=== PATIENT | male | born 1945 | race Caucasian/White ===

== ENCOUNTER 2019-03-16 11:52 | Inpatient (IN) ==
[2019-03-16 11:59] VITALS: BMI 25.0
--- NOTE | 2019-03-16 13:33 | DR.ABDMALE ---
HPI Time seen Time Seen by Provider: 03/16/19 13:19 PCP Primary Care Physician: DR COOK Complaint Chief Complaint Doctors Comments: A 74 y/o male with epigastric pain of about 3 weeks. He describes this as sharp in nature and very intense. It is frequent and intermittent and worsens with meals. other c/o is of constipation. Last BM was 10 days ago. He has tried OTC agents with no success. Chief Complaint:: PT C/O 3 WEEK HISTORY OF CONSTANT SEVERE EPIGASTRIC PAIN THAT INTERMITTENTLY RADIATES STRAIGHT THROUGHT TO BACK. PT ALSO C/O NAUSEA BUT DENIES VOMITING. STATES HE HASN'T HAD BM IN 10 DAYS. SAW PCP AND WAS REFERED TO ER TODAY. Mode of arrival Mode of Arrival: Wheelchair Timing Onset of Chief Complaint: 03/16/19 Came on: Gradually Duration How lon Duration: Weeks Location Location: RUQ and Epigastric Severity Severity: Severe Quality Quality: Sharp Context Onset: Gradually History of: None Modifying factors Worsening Factors: Food Improving Factors: Nothing Associated signs and symptoms Associated Signs and Symptoms: None PMH PMH Past Medical History: No Past Medical History: Dyslipidemia, GERD, Gout and Hypertension Past Surgical History: Yes Surgical History: Tonsillectomy Family History History of Family Medical Conditions: No Family Medical History: Hypertension Social History Does patient currently use any type of tobacco product: No Have you used tobacco products in the last 12 months: No Type of Tobacco Use: None Does any household member use tobacco: No Alcohol Use: None Do you use any recreational Drugs:: No Lives With: Spouse Lives Where: Home infectious screening In the last 2 months have you had wt loss of >10#?: NO Have you had fever, night sweats or hemotysis?: No Have you traveled outside the country in the last 6 months?: No Isolation: Standard ROS Review of Systems Constitutional: No Symptoms Reported Eyes: No Symptoms Reported ENTM: No Symptoms Reported Respiratoy: No Symptoms Reported Cardiovascular: No Symptoms Reported Gastrointestinal/Abdominal: Abdominal Pain and Other (constipation) Genitourinary: No Symptoms Reported Neurological: No Symptoms Reported Musculoskeletal: No Symptoms Reported Integumentary: No Symptoms Reported Hematologic/Lymphatic: No Symptoms Reported Endocrine: No Symptoms Reported Psychiatric: No Symptoms Reported PE Vital Signs Vital Signs: Temp Pulse Resp BP BP Pulse Ox 03/16/19 11:53 97.4 F L 97 H 20 124/60 98 03/13/19 10:34 117/62 02/02/16 12:00 127/83 General Limitations: No Limitations General Appearance: Alert Head Head Exam: Normal Inspection, Atraumatic and Normocephalic Eyes Eye exam: Normal Appearance and EOMI ENT ENT Exam: Normal Exam, Normal Oropharynx and Mucous Membranes Moist Neck Neck Exam: Normal Inspection, Full ROM and Trachea Midline Chest Chest Inspection: Normal Inspection and Symmetric Chest Wall Rise Respiratory Respiratory Exam: Normal Lung Sounds Bilat Cardiovascular Cardiovascular Exam: Regular Rate, Normal Rhythm, Normal Heart Sounds, +S1 and +S2 Abdominal Exam Abdominal Exam: Normal Bowel Sounds, Soft and Distention; negative Normal Inspection, Tenderness, Guarding, Rebound, Rigidity, Dimnished Bowel Sounds, Hyperactive Bowel Sounds, Hypoactive Bowel Sounds, Organomegaly, Trauma, Incision, Ascites, Mass, Bruit, Pulsatile Mass and Hernia Rectal Rectal Exam: Deferred Back Back Exam: Normal Inspection and Full ROM Extremeties Extremities Exam: Normal Inspection and Full ROM Exam: Male: Deferred Neurologic Neurological Exam: Alert and Oriented X3 Psychiatric Psychiatric Exam: Normal Affect and Normal Mood Skin Skin Exam: Dry and Normal Color COURSE Reevaluation 1st: Unchanged Education/Counseling Education/Counseling: Patient, Family, Education and Counseling Educated On: Treatment, Diagnosis, Prognosis and Needs for Follow Up ROR Labs Reviewed Laboratory Results Reviewed?: Yes Result Diagrams: 03/16/19 13:37 03/16/19 13:37 Laboratory: WBC 14.1 X10^3/uL (3.6-10.0) H 03/16/19 13:37 RBC 4.27 X10^6/uL (4.7-6.0) L 03/16/19 13:37 Hgb 13.3 g/dL (13.5-18.0) L 03/16/19 13:37 Hct 38.4 % (42.0-54.0) L 03/16/19 13:37 MCV 90.0 fL (80.0-100.0) 03/16/19 13:37 MCH 31.1 pg (27.0-34.0) 03/16/19 13:37 MCHC 34.6 g/dL (33.0-35.0) 03/16/19 13:37 RDW 13.9 % (11.6-16.5) 03/16/19 13:37 Plt Count 251 X10^3/uL (150.0-450.0) 03/16/19 13:37 MPV 6.4 fL (7.4-11.0) L 03/16/19 13:37 Neut % (Auto) 82.5 % (42.0-75.0) H 03/16/19 13:37 Lymph % (Auto) 8.0 % (21.0-51.0) L 03/16/19 13:37 [place] % (Auto) 9.2 % (0.0-13.0) 03/16/19 13:37 Eos % (Auto) 0.0 % (0.9-2.9) L 03/16/19 13:37 Baso % (Auto) 0.3 % (0.2-1.0) 03/16/19 13:37 Neut # (Auto) 11.6 x10^3/uL (2.2-4.8) H 03/16/19 13:37 Lymph # (Auto) 1.1 X10^3/uL (1.3-2.9) L 03/16/19 13:37 [place] # (Auto) 1.3 x10^3/uL (0.3-0.8) H 03/16/19 13:37 Eos # (Auto) 0.0 x10^3/uL (0.0-0.2) 03/16/19 13:37 Baso # (Auto) 0.0 X10^3/uL (0.0-0.1) 03/16/19 13:37 Absolute Nucleated RBC 0.0 /100WBC 03/16/19 13:37 Sodium 130 mmol/L (136-145) L 03/16/19 13:37 Corrected Sodium 131 mmol/L (136-145) L 03/16/19 13:37 Potassium 4.8 mmol/L (3.5-5.1) 03/16/19 13:37 Chloride 91 mmol/L (98-107) L 03/16/19 13:37 Carbon Dioxide 28.1 mmol/L (21-32) 03/16/19 13:37 BUN 53 mg/dL (7-18) H 03/16/19 13:37 Creatinine 2.15 mg/dL (0.70-1.30) H 03/16/19 13:37 Est GFR (MDRD) Af Amer 39 (>60) L 03/16/19 13:37 Est GFR (MDRD) Non-Af 32 (>60) L 03/16/19 13:37 Glucose 154 mg/dL (65-99) H 03/16/19 13:37 Calcium 10.1 mg/dL (8.5-10.1) 03/16/19 13:37 Corrected Calcium 10.9 mg/dL (8.5-10.1) H 03/16/19 13:37 Total Bilirubin 0.90 mg/dL (0.2-1.0) 03/16/19 13:37 AST 87 Units/L (15-37) H 03/16/19 13:37 ALT 99 Units/L (12-78) H 03/16/19 13:37 Alkaline Phosphatase 339 Units/L (46-116) H 03/16/19 13:37 Total Protein 7.9 g/dL (6.4-8.2) 03/16/19 13:37 Albumin 3.0 g/dL (3.4-5.0) L 03/16/19 13:37 Globulin 4.9 g/dL (2.5-4.5) H 03/16/19 13:37 Albumin/Globulin Ratio 0.6 Ratio (1.1-2.1) L 03/16/19 13:37 Amylase 25 Units/L (25-115) 03/16/19 13:37 Lipase 141 Units/L (73-393) 03/16/19 13:37 Other Results Comments: Abd. U/S report: no evidence for cholelithiasis or cholecystitis. 2 well marginated hypoechoic but not clearly cystic hepatic lesion measuring 2.5 x 1.6cm and 1.9 x 1.9 cm. Opioid Opioid Risk Tool Age (Britton box if 16-45): No History of Preadolescent Sexual Abuse: No Total: 0 Total Score Risk Category: Low Risk Copyright: Donal CAMERON predicting aberrant behaviors Diagnosis Discharge Problem: Elevated LFTs, Dehydration, Hepatic lesion, Hyponatremia Acute renal failure Qualifiers: Acute renal failure type: unspecified Qualified Code(s): N17.9 - Acute kidney failure, unspecified Instructions Forms: Excuse From Work
[2019-03-16 13:45] LABS: BASOPHILS % (AUTO) 0.3 % (0.2-1.0); HEMATOCRIT 38.4 % (42.0-54.0); HEMOGLOBIN 13.3 g/dL (13.5-18.0); LYMPHOCYTES # (AUTO) 1.1 X10^3/uL (1.3-2.9); MEAN CORPUSCULAR HEMOGLOBIN 31.1 pg (27.0-34.0); MEAN CORPUSCULAR HGB CONC 34.6 g/dL (33.0-35.0); MEAN PLATELET VOLUME 6.4 fL (7.4-11.0); MONOCYTES # (AUTO) 1.3 x10^3/uL (0.3-0.8); MONOCYTES % (AUTO) 9.2 % (0.0-13.0); NEUTROPHILS # (AUTO) 11.6 x10^3/uL (2.2-4.8); NEUTROPHILS % (AUTO) 82.5 % (42.0-75.0); PLATELET COUNT 251 X10^3/uL (150.0-450.0); RED BLOOD COUNT 4.27 X10^6/uL (4.7-6.0); RED CELL DISTRIBUTION WIDTH 13.9 % (11.6-16.5); WHITE BLOOD COUNT 14.1 X10^3/uL (3.6-10.0)
[2019-03-16 13:59] LABS: CALCIUM 10.1 mg/dL (8.5-10.1); CARBON DIOXIDE 28.1 mmol/L (21-32); COR CA(FOR HYPOALB) 10.9 mg/dL (8.5-10.1); CREATININE 2.15 mg/dL (0.70-1.30); TOTAL PROTEIN 7.9 g/dL (6.4-8.2)
--- NOTE | 2019-03-16 14:29 | US ---
HISTORY: Epigastric pain, right upper quadrant pain Study: Right upper quadrant ultrasound Comparison: None Technique: Multiple grayscale sonographic images were obtained. Findings: The liver is normal in size and configuration. There are 2 well-marginated sonolucent but not cystic lesions within the liver 1 measures 2.5 x 1.6 cm and the other 1.9 x 1.9 cm. The should be evaluated with hepatic protocol CT with and without contrast. The pancreas was not well demonstrated. The right kidney measured 9.9 x 5.5 x 5.3 cm and demonstrated no solid masses, hydronephrosis, stones, or perinephric fluid collections. No gallstones are present within the gallbladder. Gallbladder wall thickness was normal. The common duct measured 1.4 mm. IMPRESSION: No evidence for cholelithiasis or cholecystitis 2 well-marginated hypoechoic but not clearly cystic hepatic lesion measuring 2.5 x 1.6 cm and 1.9 x 1.9 cm. The should be further evaluated with hepatic protocol CT with and without contrast Reported By:
[2019-03-16] MEDS ORDERED: NS 1000 ML 1,000 ML IV ONE ×2 (15:12→16:00)
[2019-03-16] MEDS ORDERED: NS 1000 ML 1,000 ML ONE (15:15)
[2019-03-16] MEDS ORDERED: CHRONULAC ONE (15:16)
[2019-03-16] MEDS: CHRONULAC PO ONE (15:19)
[2019-03-16] MEDS ORDERED: NS 1000 ML IV NR (17:00)
[2019-03-16] MEDS: NS 1000 ML 1,000 ML IV SCH (18:05)
[2019-03-16] MEDS: ULTRAM PO PRN (21:33)
--- NOTE | 2019-03-16 22:14 | CT ---
CT abdomen and pelvis without contrast Indication: Abdominal pain Comparison: 12/29/2014 Technique: Multiple axial images of the abdomen and pelvis were obtained from the lung bases to the pubic symphysis without the administration of IV contrast. Coronal and sagittal reformatted images were also provided. Dose reduction techniques including automated exposure control (AEC) and adjustment of mA and kV were utilized. Findings: Overall sensitivity in detection of solid organ injury, mass or inflammatory change along with vascular injury or mesenteric hematoma is severely limited given lack of IV contrast administration. The lung bases are clear. No focal hepatic lesion is identified given limitations of a noncontrast examination. The gallbladder, bile ducts, spleen, pancreas and adrenal glands are normal. Neither kidney demonstrates evidence of nephrolithiasis, hydronephrosis or mass. Upper GI tract demonstrates no evidence of mass or obstruction. Urinary bladder is unremarkable. Prostate gland is enlarged with central dystrophic calcification. Moderate-size right and very small left-sided fat containing paraumbilical hernias. The rectum is normal. Distal colonic diverticulosis without evidence of acute diverticulitis. The appendix is normal. Abdominal aorta is normal in caliber with moderate calcified atherosclerotic disease. Small fat containing paraumbilical hernia. Round lytic lesions within the T10, T11, T12, L2, L3 and L5 vertebral bodies. Lytic lesions are noted within the right iliac wing. IMPRESSION: 1.Multiple new lytic lesions within the thoracic, lumbar spine and sacrum are consistent with osseous metastatic disease. 2. No acute inflammatory process identified within the abdomen or pelvis. 3. Distal colonic diverticulosis without evidence of acute diverticulitis. 4. Refer to above for incidental, nonacute findings. Reported By:
[2019-03-17] MEDS: ULTRAM PO PRN ×5 (01:54→22:00)
[2019-03-17] MEDS: NS 1000 ML 1,000 ML IV SCH ×4 (02:19→19:48)
[2019-03-17 06:11] LABS: BASOPHILS % (AUTO) 0.3 % (0.2-1.0); EOSINOPHILS # (AUTO) 0.1 x10^3/uL (0.0-0.2); EOSINOPHILS % (AUTO) 0.6 % (0.9-2.9); HEMOGLOBIN 11.6 g/dL (13.5-18.0); LYMPHOCYTES # (AUTO) 1.1 X10^3/uL (1.3-2.9); MEAN CORPUSCULAR HGB CONC 34.2 g/dL (33.0-35.0); MEAN CORPUSCULAR VOLUME 90.7 fL (80.0-100.0); MEAN PLATELET VOLUME 6.9 fL (7.4-11.0); MONOCYTES # (AUTO) 1.1 x10^3/uL (0.3-0.8); NEUTROPHILS # (AUTO) 8.1 x10^3/uL (2.2-4.8); NEUTROPHILS % (AUTO) 77.1 % (42.0-75.0); PLATELET COUNT 199 X10^3/uL (150.0-450.0); RED BLOOD COUNT 3.75 X10^6/uL (4.7-6.0); RED CELL DISTRIBUTION WIDTH 14.1 % (11.6-16.5); WHITE BLOOD COUNT 10.5 X10^3/uL (3.6-10.0)
[2019-03-17 06:36] LABS: ALANINE AMINOTRANSFERASE 112 Units/L (12-78); ALBUMIN 2.3 g/dL (3.4-5.0); ALKALINE PHOSPHATASE 320 Units/L (46-116); ASPARTATE AMINO TRANSFERASE 78 Units/L (15-37); BLOOD UREA NITROGEN 40 mg/dL (7-18); CALCIUM 8.5 mg/dL (8.5-10.1); CARBON DIOXIDE 27.2 mmol/L (21-32); COR CA(FOR HYPOALB) 9.9 mg/dL (8.5-10.1); CREATININE 1.43 mg/dL (0.70-1.30); TOTAL PROTEIN 6.5 g/dL (6.4-8.2); eGFR NON BLACK RACES 52 (>60)
[2019-03-17 07:29] LABS: CHLORIDE 100 mmol/L (98-107); COR NA(FOR HYPERGLY) 135 mmol/L (136-145); SODIUM 134 mmol/L (136-145)
[2019-03-17] MEDS ORDERED: NS 1000 ML 2,000 ML IV ONE (10:15)
[2019-03-17] MEDS ORDERED: ZOFRAN INJ 4 MG VIAL IVP PRN (10:25)
--- NOTE | 2019-03-17 11:01 | DR.PROGNOT ---
Hospital Progress Notes - Progress Note for Day of: Progress Note Date: 03/17/19 - Chief Complaint Chief Complaint: less abdominal pain and no distention today . had normal BM , no bleeding . PSA is normal . abdominal CT showed multiple lytic lesions on the spine and pelvis . renal function is improving with hydration but still high . - Past Medical Family Social History Past Med/Fam/Surg Hx: No changes since H&P Allergies: Allergies No Known Drug Allergies Allergy (Verified 03/13/19 10:43) - Review Of Systems ROS: No change since H&P - Vital Signs Vital Signs: Temperature 98.7 F Pulse Rate [Left Brachial] 91 Pulse Rate 97 Respiratory Rate 20 Blood Pressure [Left Arm] 116/70 Blood Pressure [Right Arm] 127/83 Blood Pressure 124/60 O2 Sat by Pulse Oximetry 93 - Physical Exam Oriented: Normal Eyes: Normal Ear: Normal Nose: Normal Cardiovascular: Normal : Normal GI:Auscultation: Normal GI:Palpation: Normal GI: Tenderness: Epigastric, Mild Skin: Normal Speech Pattern: Clear, Appropriate - Laboratory and Diagnostics Result Diagrams: 03/17/19 05:16 03/17/19 05:16 Labs: Laboratory WBC 10.5 X10^3/uL (3.6-10.0) H 03/17/19 05:16 RBC 3.75 X10^6/uL (4.7-6.0) L 03/17/19 05:16 Hgb 11.6 g/dL (13.5-18.0) L 03/17/19 05:16 Hct 34.0 % (42.0-54.0) L 03/17/19 05:16 MCV 90.7 fL (80.0-100.0) 03/17/19 05:16 MCH 31.0 pg (27.0-34.0) 03/17/19 05:16 MCHC 34.2 g/dL (33.0-35.0) 03/17/19 05:16 RDW 14.1 % (11.6-16.5) 03/17/19 05:16 Plt Count 199 X10^3/uL (150.0-450.0) 03/17/19 05:16 MPV 6.9 fL (7.4-11.0) L 03/17/19 05:16 Neut % (Auto) 77.1 % (42.0-75.0) H 03/17/19 05:16 Lymph % (Auto) 11.0 % (21.0-51.0) L 03/17/19 05:16 [place] % (Auto) 11.0 % (0.0-13.0) 03/17/19 05:16 Eos % (Auto) 0.6 % (0.9-2.9) L 03/17/19 05:16 Baso % (Auto) 0.3 % (0.2-1.0) 03/17/19 05:16 Neut # (Auto) 8.1 x10^3/uL (2.2-4.8) H 03/17/19 05:16 Lymph # (Auto) 1.1 X10^3/uL (1.3-2.9) L 03/17/19 05:16 [place] # (Auto) 1.1 x10^3/uL (0.3-0.8) H 03/17/19 05:16 Eos # (Auto) 0.1 x10^3/uL (0.0-0.2) 03/17/19 05:16 Baso # (Auto) 0.0 X10^3/uL (0.0-0.1) 03/17/19 05:16 Absolute Nucleated RBC 0.0 /100WBC 03/17/19 05:16 Sodium 134 mmol/L (136-145) L 03/17/19 05:16 Corrected Sodium 135 mmol/L (136-145) L 03/17/19 05:16 Potassium 4.9 mmol/L (3.5-5.1) 03/17/19 05:16 Chloride 100 mmol/L (98-107) 03/17/19 05:16 Carbon Dioxide 27.2 mmol/L (21-32) 03/17/19 05:16 BUN 40 mg/dL (7-18) H 03/17/19 05:16 Creatinine 1.43 mg/dL (0.70-1.30) H 03/17/19 05:16 Est GFR (MDRD) Af Amer > 60 (>60) 03/17/19 05:16 Est GFR (MDRD) Non-Af 52 (>60) L 03/17/19 05:16 Glucose 144 mg/dL (65-99) H 03/17/19 05:16 Calcium 8.5 mg/dL (8.5-10.1) 03/17/19 05:16 Corrected Calcium 9.9 mg/dL (8.5-10.1) 03/17/19 05:16 Total Bilirubin 0.60 mg/dL (0.2-1.0) 03/17/19 05:16 AST 78 Units/L (15-37) H 03/17/19 05:16 ALT 112 Units/L (12-78) H 03/17/19 05:16 Alkaline Phosphatase 320 Units/L (46-116) H 03/17/19 05:16 Lactate Dehydrogenase 815 Units/L (85-227) H 03/17/19 05:16 Total Protein 6.5 g/dL (6.4-8.2) 03/17/19 05:16 Albumin 2.3 g/dL (3.4-5.0) L 03/17/19 05:16 Globulin 4.2 g/dL (2.5-4.5) 03/17/19 05:16 Albumin/Globulin Ratio 0.5 Ratio (1.1-2.1) L 03/17/19 05:16 Amylase 25 Units/L (25-115) 03/16/19 13:37 Lipase 141 Units/L (73-393) 03/16/19 13:37 Total PSA 3.13 ng/mL (0.13-4.0) 03/17/19 00:49 - Assessment and Plan 1: abdominal pain ( subsiding ) . multiple lytic lesions involving the spine and pelvis . dehydration and CKD . for MRI and lung CT . - Problem Patient Problems: Patient Problems Acute renal failure (Acute) N17.9 Elevated LFTs (Acute) R94.5 Dehydration (Acute) E86.0 Hepatic lesion (Acute) K76.9 Hyponatremia (Acute) E87.1
[2019-03-17] MEDS: PROTONIX TAB 40 MG PO SCH (11:25)
[2019-03-17] MEDS: MUCOMYST 20% 200 MG/ML PO SCH ×2 (11:28→21:10)
[2019-03-17] MEDS: VITAMIN D3 PO SCH (14:20)
[2019-03-17] MEDS: ZYLOPRIM PO SCH (14:20)
--- NOTE | 2019-03-17 15:35 | CT ---
History: Weight loss Study: CT thorax utilizing 150 mL Omnipaque 350 IV contrast. Mucomyst was administered with hydration. Sagittal and coronal reformations were provided. Dose reduction techniques were utilized. Soft tissue axial MIPS were also displayed. Comparison: None Findings: There is blunting of the lateral left costophrenic angle but no pleural fluid is suggested. There is an approximately 2 cm rounded mass posteriorly in the right lower lobe with slightly ill-defined margins. There is an adjacent medial 5 mm noncalcified nodule. There are at least 2 5 mm noncalcified nodules in the right upper lobe and there are 2 or 3 5 mm and smaller right middle lobe peripheral nodules. The left lung is grossly clear. There is a 9 mm pulmonary nodule posteriorly in the apex of the right lung. There is a 1.75 cm right hilar lymph node. There are small lymph nodes in the anterior superior mediastinum. There is mild subcarinal adenopathy. The visualized upper abdomen is unremarkable. The adrenal glands appear normal. There are lytic lesions in the T12 in T11 and T10 and T8 and T7 vertebra. Impression: 1. Multiple right upper and middle and lower lobe pulmonary nodules, the largest of which is posteriorly in the right lower lobe measuring up to 2 cm. Other nodules are small. 2. Right hilar adenopathy and multiple lytic bone Mets to the thoracic spine Reported By:
--- NOTE | 2019-03-17 15:46 | CT ---
History: Abdominal pain and weight loss Study: CT abdomen and pelvis after intravenous infusion of 150 mL Omnipaque 350. Oral contrast was also administered. Sagittal and coronal reformations were provided. Venous and 10 min delayed images were obtained. Dose reduction techniques were utilized. Mucomyst was administered with hydration. Comparison: Yesterday's study without IV contrast Findings: There is a 1.5 cm low-attenuation lesion in the right lobe of the liver under the diaphragm posteriorly and a 1.8 cm low-attenuation lesion in the right lobe of the liver centrally and a 1.2 cm low-attenuation lesion in the right lobe near the gallbladder fossa. There is a 7 mm lesion just lateral to the gallbladder fossa. The spleen adrenal glands and pancreas and kidneys are unremarkable without mass. There is severe atherosclerotic calcification in the aorta without significant aneurysm demonstrated. There is diverticulosis without inflammation. No colonic mass is demonstrated. The appendix is normal. There are multiple lytic lesions in lumbar vertebral bodies and in the sacrum. No mesenteric or retroperitoneal adenopathy is demonstrated. Impression: 1. Liver Mets 2. Bone Mets Reported By:
[2019-03-17] MEDS: CHRONULAC PO ONE (18:15)
[2019-03-17] MEDS ORDERED: SINGULAIR TAB 10 MG PO SCH (21:00)
[2019-03-17] MEDS: COLACE CAP 100 MG PO SCH (21:00)
[2019-03-17] MEDS ORDERED: FLOMAX PO SCH (21:00)
[2019-03-17] MEDS ORDERED: IMIPRAMINE HCL 25 MG PO SCH (21:00)
[2019-03-17] MEDS ORDERED: ZOCOR TAB 20 MG PO SCH (21:00)
[2019-03-17] MEDS ORDERED: MUCOMYST 20% 200 MG/ML PO SCH (21:00)
[2019-03-17] MEDS ORDERED: ZyrTEC TAB 10 MG PO SCH (21:00)
[2019-03-17] MEDS ORDERED: NORVASC TAB 2.5 MG PO SCH (21:00)
[2019-03-17] MEDS: LEVSIN SYRUP PO SCH (21:01)
[2019-03-18] MEDS: NS 1000 ML 1,000 ML IV SCH ×4 (01:25→11:14)
[2019-03-18] MEDS: ULTRAM PO PRN ×2 (02:05→11:01)
[2019-03-18 05:24] LABS: BASOPHILS % (AUTO) 0.4 % (0.2-1.0); EOSINOPHILS # (AUTO) 0.2 x10^3/uL (0.0-0.2); EOSINOPHILS % (AUTO) 1.7 % (0.9-2.9); HEMATOCRIT 33.3 % (42.0-54.0); HEMOGLOBIN 11.3 g/dL (13.5-18.0); LYMPHOCYTES # (AUTO) 1.5 X10^3/uL (1.3-2.9); LYMPHOCYTES % (AUTO) 15.7 % (21.0-51.0); MEAN CORPUSCULAR HEMOGLOBIN 30.8 pg (27.0-34.0); MEAN CORPUSCULAR VOLUME 90.6 fL (80.0-100.0); MEAN PLATELET VOLUME 6.7 fL (7.4-11.0); MONOCYTES % (AUTO) 10.8 % (0.0-13.0); NEUTROPHILS # (AUTO) 6.8 x10^3/uL (2.2-4.8); NEUTROPHILS % (AUTO) 71.4 % (42.0-75.0); PLATELET COUNT 203 X10^3/uL (150.0-450.0); RED BLOOD COUNT 3.68 X10^6/uL (4.7-6.0); RED CELL DISTRIBUTION WIDTH 14.3 % (11.6-16.5); WHITE BLOOD COUNT 9.5 X10^3/uL (3.6-10.0)
[2019-03-18 05:35] LABS: ALANINE AMINOTRANSFERASE 175 Units/L (12-78); ALBUMIN 2.1 g/dL (3.4-5.0); ALKALINE PHOSPHATASE 369 Units/L (46-116); ASPARTATE AMINO TRANSFERASE 104 Units/L (15-37); BLOOD UREA NITROGEN 23 mg/dL (7-18); CALCIUM 8.3 mg/dL (8.5-10.1); CARBON DIOXIDE 24.1 mmol/L (21-32); CHLORIDE 100 mmol/L (98-107); COR CA(FOR HYPOALB) 9.8 mg/dL (8.5-10.1); COR NA(FOR HYPERGLY) 133 mmol/L (136-145); CREATININE 0.98 mg/dL (0.70-1.30); SODIUM 132 mmol/L (136-145); eGFR NON BLACK RACES > 60 (>60)
[2019-03-18] MEDS: COLACE CAP 100 MG PO SCH (09:15)
[2019-03-18] MEDS: ZYLOPRIM PO SCH (09:17)
[2019-03-18] MEDS: PROTONIX TAB 40 MG PO SCH (09:17)
[2019-03-18] MEDS: LEVSIN SYRUP PO SCH (09:17)
[2019-03-18] MEDS: VITAMIN D3 PO SCH (09:17)
[2019-03-18] MEDS: MUCOMYST 20% 200 MG/ML PO SCH (09:30)
[2019-03-18] MEDS ORDERED: VALIUM PO NR (10:14)
[2019-03-18 12:37] VITALS: BP 150/70
--- NOTE | 2019-03-18 16:55 | MRI ---
MRI SPINE LUMBAR WITHOUT AND WITH CONTRAST CLINICAL HISTORY: 74-year-old male with abdominal pain and weight loss with multiple lytic lesions noted within the lumbar spine on CT abdomen and pelvis 03/17/2019. COMPARISON: CT abdomen and pelvis 03/16/2019 and 03/17/2019. Technique: Multiplanar, multisequence MRI images of the lumbar spine were obtained prior to and following the uneventful intravenous administration of 16 mL MultiHance. FINDINGS: The most caudad, fully-formed intervertebral disc will be labeled L5-S1 for the purpose of this dictation and in keeping with prior imaging. Straightening of the lumbar lordosis as imaged. Alignment is maintained. Diffuse heterogenous T1 signal loss throughout the imaged lumbosacral spine corresponding with findings on CT superimposed upon multilevel degenerative change with Schmorl's node superior endplates L3-L5. Lytic lesions noted on CT demonstrate mild T2 hyperintensity with STIR hyperintensity and postcontrast enhancement. Mixed type 1 and type 2 endplate change adjacent to the Schmorl's nodes with postcontrast enhancement as expected. Vertebral body heights are otherwise preserved. Disc height and signal is overall preserved. Cord signal is normal. The conus medullaris is normal in signal characteristics and morphology and terminates at the L1-2 level. T11-T12: Imaged in the sagittal plane only without central canal or foraminal stenosis. T12-L1: Small symmetric disc bulge and mild facet arthropathy without central canal or foraminal stenosis. L1-L2: Small symmetric disc bulge and mild facet arthropathy without central canal or foraminal stenosis. L2-L3: Small symmetric disc bulge with moderate facet arthropathy without central canal or foraminal stenosis. L3-L4: Small symmetric disc bulge and moderate facet arthropathy without central canal or foraminal stenosis. L4-L5: Moderate symmetric disc bulge and facet arthropathy without central canal stenosis. Mild bilateral foraminal and subarticular recess stenosis. L5-S1: Moderate asymmetric disc bulge with a left foraminal component. Central canal measures 10.9 mm mid sagittal plane. Moderate right and severe left facet arthropathy. Moderate to severe left foraminal and subarticular recess stenosis. Compressive flattening dorsal aspect exiting left L5 nerve root with engagement of the ventral dorsal aspects of the transiting left S1 nerve root. IMPRESSION: 1. Findings as above consistent with diffuse metastatic disease throughout the lumbosacral spine as noted on CT abdomen and pelvis. 2. Multilevel disc degeneration and spondyloarthropathy, most severe on the left at L5-S1. 3. See level by level descriptions above. Reported By:
--- NOTE | 2019-03-18 17:03 | MRI ---
MRI Thoracic spine with and without contrast Indication: CT evidence for metastatic disease Technique: Multisequence, multiplanar MR images of the thoracic spine were obtained with and without IV contrast. Comparison: CT chest 03/17/2019 Findings: The lumbar spine findings are reported separately. The exam is moderately degraded by patient motion artifact. Accounting for this, multiple marrow replacing and enhancing lesions are again noted throughout the thoracic spine, including the T1, T6-T8 and T10-T12 vertebral bodies, compatible with osseous metastatic disease. Additional similar appearing lesions are present within the visualized cervical spine. No definite pathologic fracture is identified. None of the lesions demonstrate demonstrable extraosseous soft tissue components and no definite pathologic intra or extra-axial enhancement is identified within the imaged cervicothoracic spinal canal. Impression: Redemonstration of multiple marrow replacing and enhancing lesions throughout the axial skeleton as above, compatible with osseous metastatic disease. Otherwise, no associated pathologic fracture or definite abnormal intra/extra-axial enhancement is identified, accounting for limitations from patient motion artifact. Reported By:
== END 2019-03-18 17:00 | disposition home or self-care (01) | DRG 683 ==
LOC: ER 11:52 → ICU 15:26
PROVIDERS: ADMIT Internal Medicine; ATTEND Internal Medicine
DX: C78.7 Secondary malignant neoplasm of liver and intrahepatic bile duct; C79.51 Secondary malignant neoplasm of bone; R10.9 Unspecified abdominal pain; C78.00 Secondary malignant neoplasm of unspecified lung; N17.9 Acute kidney failure, unspecified; K59.00 Constipation, unspecified; C79.49 Secondary malignant neoplasm of other parts of nervous system
CPT/HCPCS: 36415; 71260; 72157; 72158; 74176; 74177; 76705; 80053; 82150; 82378; 83615; 83690; 84153; 85025; 96365; 99284; A4222; J7030; J7608